=== PATIENT | female | born 1995 | race Caucasian/White ===

== ENCOUNTER 2018-11-14 16:33 | Emergency (ER) | payer BC, OTHER ==
[2018-11-14] MEDS ORDERED: Ibuprofen 800 MG TAB ONE (16:58)
[2018-11-14] MEDS ORDERED: Ondansetron ODT 4 MG TAB ONE (16:58)
--- NOTE | 2018-11-14 17:25 | RAD ---
EXAM: Chest PA and lateral: HISTORY: Cough COMPARISON: 01/13/2013 FINDINGS: Limited evaluation due to body habitus. Heart: Normal cardiac silhouette Aorta: Unremarkable Pulmonary vessels: Normal Costophrenic angles: Costophrenic angles are clear. Lungs: No consolidation or masses. Pneumothorax: No pneumothorax Osseous structures: No osseous abnormalities IMPRESSION: No acute cardiopulmonary process.
[2018-11-14 18:10] LABS: Bilirubin Moderate (Negative); Blood, Urine Negative (Negative); Clarity Slightly Cloudy (Clear); Glucose, Urine (Dipstick) Negative (Negative); Leukocyte Negative (Negative); Nitrite Positive (Negative); Protein, Urine (Dipstick) 100 mg/dL (Neg-Trace)
[2018-11-14 18:19] LABS: Bacteria/HPF 3+ HPF (None Seen); RBC/HPF 0-3 HPF (0-3); WBC/HPF 0-3 HPF (0-3)
[2018-11-14] MEDS ORDERED: Sulfameth/Trimethoprim DS 800-160mg TAB ONE (18:37)
== END 2018-11-14 18:44 | disposition home or self-care (01) ==
LOC: MADERS 16:33
DX: B34.9 Viral infection, unspecified (principal); N39.0 Urinary tract infection, site not specified; E66.9 Obesity, unspecified; J45.909 Unspecified asthma, uncomplicated; F41.9 Anxiety disorder, unspecified; F32.9 Major depressive disorder, single episode, unspecified; F17.210 Nicotine dependence, cigarettes, uncomplicated; Z71.6 Tobacco abuse counseling
CPT/HCPCS: 71046; 81003; 81015; 87804; 99406; J7620; Q0162